=== PATIENT | male | born 1965 | race African-American/Black ===

== ENCOUNTER 2016-11-12 10:29 | Emergency (ER) | payer SELFPAY ==
--- NOTE | ~2016-11-12 | CR58 ---
[facility] A Service of [facility] & [facility] RADIOLOGY TEXT RESULTS PATIENT: ABUNDIO MORALES LOCATION: CFTX : 65 UNIT #: [id number] AGE: [address]: Nadine Montoya SEX: M ORDER DR: [id number] [facility] [address] [place], [place] [address] [id number] E MR#: [id number] Acc #: [id number] NAME: ABUNDIO MORALES : 1965 SEX: M STUDY DATE/TIME: 11/12/2016 9:34 UNIT: [facility] ROOM: STUDY DESCRIPTION: CR Cervical Spine 2 or 3 Views Attending Physician: Nadine Montoya P.A.-C. Ordering Physician: Nadine Montoya P.A.-C. MEDICAL IMAGING REPORT This report is preliminary unless electronic signature is present EXAM Cervical spine series, 11/12/2016 HISTORY Radiculopathy. Neck pain. Shoulder pain. Right shoulder surgery. 3 weeks duration. FINDINGS AP, lateral and open mouth odontoid views of the cervical spine are presented. Comparison 03/02/2013. Straightening of the normal cervical lordosis. Similar to prior examination. No fracture. No indication of traumatic malalignment. Vertebral body heights are normal. Progression of degenerative change since the prior study. Moderate to marked disc space narrowing C3-C4, increased from prior study. Moderate to marked disc space narrowing C5-C6, C6-C7 progressed from prior examination. Multilevel anterior and lateral osteophyte formations. Probable posterior osteophyte formation C3-C4, C4-C5, C5-C6, C6-C7. Multilevel moderate facet degenerative changes. C1-C2 relationship normal. Odontoid process intact. Prevertebral soft tissues unremarkable. Lung apices clear. Partially missing upper teeth with an appearance suggesting either dental fracture or dental caries. Correlate with dental examination. Chronic soft tissue calcification in the posterior nuchal ligament. Dictated by... Ty Matute M.D. THIS IS AN ELECTRONICALLY VERIFIED REPORT Ty Matute M.D. at 11/17/2016 6:37 PM DES/yimi TD: 11/12/2016 10:59 JOB #: [id number] [facility] A Service of [facility] & [facility] RADIOLOGY TEXT RESULTS PATIENT: ABUNDIO MORALES LOCATION: CFTX : 65 UNIT #: [id number] AGE: [address]: Nadine Montoya SEX: M ORDER DR: MEDICAL IMAGING REPORT Page 1 of 1 COPY
--- NOTE | ~2016-11-12 | CR230 ---
[facility] A Service of [facility] & [facility] RADIOLOGY TEXT RESULTS PATIENT: ABUNDIO MORALES LOCATION: CFTX : 65 UNIT #: [id number] AGE: [address]: Nadine Montoya SEX: M ORDER DR: [id number] [facility] [address] [place], [place] [address] [id number] E MR#: [id number] Acc #: [id number] NAME: ABUNDIO MORALES : 1965 SEX: M STUDY DATE/TIME: 11/12/2016 9:38 UNIT: [facility] ROOM: STUDY DESCRIPTION: CR Shoulder Min 2 View Rt Attending Physician: Nadine Montoya P.A.-C. Ordering Physician: Nadine Montoya P.A.-C. MEDICAL IMAGING REPORT This report is preliminary unless electronic signature is present EXAM Right shoulder series, 11/12/2016 HISTORY Trauma. Prior right shoulder surgery. Right shoulder pain, duration 3 weeks. FINDINGS AP internal external rotation views of right shoulder presented with transscapular view. Comparison 12/30/2002. No acute fracture or traumatic malalignment. Extensive calcifications in the coracoclavicular ligaments. Similar appearance on prior examination. Slightly more pronounced today. Mild degenerative change acromioclavicular joint. Mild narrowing glenohumeral joint. The visualized bony thorax is unremarkable. Visualized pulmonary parenchyma clear. Periarticular soft tissues unremarkable. If it would assist in patient management, shoulder could be further evaluated on an elective basis with MRI if the patient is a candidate. Dictated by... Ty Matute M.D. THIS IS AN ELECTRONICALLY VERIFIED REPORT Ty Matute M.D. at 11/17/2016 6:37 PM Aydee TD: 11/12/2016 11:08 JOB #: [id number] MEDICAL IMAGING REPORT Page 1 of 1 COPY
[~2016-11-12 10:29] MED LIST: AMOXICILLIN PO; DARVOCET-N 1001 TAB PO; DERMACORT1 GM EXT; FLEXERIL10 M1 PO; KEFLEX500 M1 PO; MEDROL4 MG/DOSE- PO; MOBIC PO; TRAMADOL HCL50 M1 PO; VOLTAREN75 MG PO
== END 2016-11-12 10:30 | disposition home or self-care (01) ==
LOC: CFTX 10:29
DX: M13.811 Other specified arthritis, right shoulder (principal); M54.12 Radiculopathy, cervical region; I10 Essential (primary) hypertension; F17.210 Nicotine dependence, cigarettes, uncomplicated
CPT/HCPCS: 72040; 73030; 96372; 99284; J1885

== ENCOUNTER 2017-03-10 18:01 | Emergency (ER) | payer SELFPAY ==
[~2017-03-10] VITALS: Ht 188 cm; Wt 88.5 kg
== END 2017-03-10 18:50 | disposition home or self-care (01) ==
LOC: CED 18:01 → CFTX 18:01
DX: L25.5 Unspecified contact dermatitis due to plants, except food (principal); I10 Essential (primary) hypertension; Z21 Asymptomatic human immunodeficiency virus [HIV] infection status; Z88.1 Allergy status to other antibiotic agents; Z88.8 Allergy status to other drugs, medicaments and biological substances
CPT/HCPCS: 96372; 99282; J1100